=== PATIENT | male | born 1935 | race Caucasian/White ===

== ENCOUNTER 2017-08-17 12:09 | Emergency (ER) | payer MEDICARE, OTHER, SELFPAY | END 2017-08-17 15:09 | disposition home or self-care (01) | PROVIDERS: Emergency Provider Emergency Medicine; Visit Provider Emergency Medicine | DX: S90.31XA Contusion of right foot, initial encounter (principal); S93.601A Unspecified sprain of right foot, initial encounter; E11.9 Type 2 diabetes mellitus without complications; W19.XXXA Unspecified fall, initial encounter | CPT/HCPCS: 73630; 99283 ==

== ENCOUNTER → 2018-02-05 07:33 | Outpatient (CLI) | payer MEDICARE, OTHER, SELFPAY ==
--- NOTE | 2018-02-05 | DI.US.S_ITS ---
PROCEDURE: US ABD AORTA ANEURYSM SCREEN INDICATIONS: PERSONAL HISTORY OF NICOTINE DEPENDENCE TECHNIQUE: Real time scanning was performed of the aorta and iliac arteries, with image documentation. COMPARISON: None. FINDINGS: Aorta: Proximal aortic diameter measures 1.8 cm. Mid-aorta measures 1.7 cm. Distal aortic diameter is 1.7 cm. Iliac arteries: Right common iliac artery measures 1.0 cm. Left common iliac artery measures 1.1 cm. IMPRESSION: No abdominal aortic or proximal common iliac artery aneurysm. Dictated by: Faisal HENDRICKS Interpreted: Alysia Ojeda MD on 02/05/2018 at 8:54 Approved by: Alysia Ojeda M.D. on 02/05/2018 at 15:37
== END ==
PROVIDERS: Visit Provider Student in an Organized Health Care Education/Training Program
DX: Z13.6 Encounter for screening for cardiovascular disorders (principal); Z87.891 Personal history of nicotine dependence
CPT/HCPCS: 76706

== ENCOUNTER → 2019-06-09 11:55 | Outpatient (CLI) | payer MEDICARE, OTHER, SELFPAY ==
--- NOTE | 2019-06-09 | DI.RAD.S_ITS ---
PROCEDURE: XR LUMBAR SPINE 2-3V INDICATIONS: LOW BACK PAIN TECHNIQUE: 3 views of the lumbar spine were acquired. COMPARISON: None. FINDINGS: Bones: No fracture or focal osseous destruction. Multilevel degenerative endplate sclerosis and spurring. Diffuse facet arthropathy. Moderate narrowing of L4-L5 disc space. Severe narrowing of L5-S1 disc space. Partially visualized mild dextrocurvature. There is trace retrolisthesis of L4 on L5. Soft tissues: Overlying bowel gas pattern is normal. No suspicious soft tissue calcifications. Scattered vascular calcifications IMPRESSION: Lower lumbar spondylosis and facet arthropathy Partially visualized mild dextrocurvature Dictated by: Bernardo Williamson M.D. on 06/09/2019 at 17:16 Approved by: Bernardo Williamson M.D. on 06/09/2019 at 17:19
== END ==
PROVIDERS: PCP Student in an Organized Health Care Education/Training Program; Referring Provider Student in an Organized Health Care Education/Training Program; Visit Provider Student in an Organized Health Care Education/Training Program
DX: M54.5 Low back pain (principal); M47.816 Spondylosis without myelopathy or radiculopathy, lumbar region
CPT/HCPCS: 72100

== ENCOUNTER → 2024-01-17 18:59 | Outpatient (CLI) | payer MEDICARE, OTHER, SELFPAY ==
--- NOTE | 2024-01-17 | DI.MRI.S_ITS ---
PROCEDURE: MR SHOULDER LT WO CON INDICATIONS: lt shoulder pain TECHNIQUE: Noncontrast oblique coronal T2 fast spin echo with fat saturation, oblique sagittal T1 spin echo and T2 fast spin echo with fat saturation, axial T1 spin echo and T2 fast spin echo with fat saturation through the shoulder. COMPARISON: None. FINDINGS: Image quality: Excellent. Rotator cuff: There is high-grade partial articular sided tearing of the supraspinatus tendon and the anterior fibers of the infraspinatus tendon measuring approximately the 1.3 cm in anterior-posterior dimension. Focal perforation of bursal sided fibers is suspected at the anterior infraspinatus insertion. Teres minor tendon is intact. There is moderate subscapularis tendinosis and foci of low-grade partial intrasubstance tearing at the distal insertion. No disproportionate atrophy of the rotator cuff musculature. Bones and bursae: No acute trabecular bone injury or fracture. Small chronic traction cystic changes are seen at the posterior superior humeral head. Mild degenerative spurring is seen in the glenoid rim. Moderate acromioclavicular joint degenerative changes with subchondral cystic changes and edema and small marginal osteophytes. Small amount of fluid is seen in the subacromial/subdeltoid bursa. There is no significant glenohumeral effusion. Capsule and soft tissues: Chronic nondisplaced tearing of the anterior inferior labrum. Signal of the superior labrum may represent a normal sublabral sulcus versus chronic nondisplaced tearing. Proximal biceps long head tendon demonstrates moderate tendinosis. There is partial effacement of the fat signal in the rotator interval. The anterior band of the inferior glenohumeral ligament and the middle glenohumeral ligament appears thickened. IMPRESSION: 1. High-grade partial articular sided tearing of the posterior supraspinatus and anterior infraspinatus tendons at the distal insertions measuring approximately 1.3 cm in anterior-posterior dimension. There is a suspected focal full-thickness component with perforation of bursal sided fibers at the anterior infraspinatus tendon insertion. 2. Moderate subscapularis tendinosis with foci of low-grade partial intrasubstance tearing at the distal insertion. Pair of moderate biceps long head tendinosis. 3. Chronic nondisplaced tearing of the anterior inferior labrum and possibly the superior labrum. Mild degenerative changes in the glenohumeral joint. 4. Moderate acromioclavicular joint osteoarthrosis. 5. Small subacromial/subdeltoid bursal effusion, which may communicate with the glenohumeral joint space. 6. Partial effacement of the rotator interval fat and mild thickening of the inferior glenohumeral ligament are nonspecific, but can be seen in the setting of the clinical syndrome of adhesive capsulitis. Approved by: Hesham Allred M.D. on 01/18/2024 at 9:21
== END ==
LOC: MRI 19:00
PROVIDERS: PCP Physician Assistant; Referring Provider Physician Assistant; Visit Provider Physician Assistant
DX: M25.512 Pain in left shoulder (principal); M75.112 Incomplete rotator cuff tear or rupture of left shoulder, not specified as traumatic; M19.012 Primary osteoarthritis, left shoulder; M25.412 Effusion, left shoulder; S43.492A Other sprain of left shoulder joint, initial encounter
CPT/HCPCS: 73221